=== PATIENT | female | born 1975 | race Caucasian/White ===

== ENCOUNTER 2019-12-18 15:41 | Emergency (ER) | payer MEDICAID ==
[~2019-12-18] VITALS: Ht 160 cm; Wt 61.4 kg
[~2019-12-18 15:41] MED LIST: CEFD300C21 PO; DOCU100C40 PO
[2019-12-18] MEDS ORDERED: acetaminophen 325mg tablet PO ONE (16:05)
[2019-12-18] MEDS ORDERED: ibuprofen tablet 400 MG TABLET PO ONE (16:05)
[2019-12-18] MEDS ORDERED: CefTRIAXone 1000mg IM Kit (w/lidocaine diluent) IM ONE (16:35)
[2019-12-18] MEDS ORDERED: azithromycin 250mg tablet PO ONE (16:35)
[2019-12-18 16:41] LABS: CLARITY,URINE SLIGHTLY CLOUDY (Clear); COLOR,URINE YELLOW (Yellow); GLUCOSE, URINE NEGATIVE (Neg); KETONES,URINE NEGATIVE (Neg); LEUKOCYTE ESTERASE ,URINE NEGATIVE (Neg); NITRITES, URINE NEGATIVE (Neg); OCCULT BLOOD,URINE MODERATE (Neg); PROTEIN,URINE NEGATIVE (Neg)
[2019-12-18 16:49] LABS: UA COLLECTION TYPE CLN CATCH MIDSTREAM
[2019-12-18 16:52] LABS: BACTERIA,URINE FEW /HPF (Neg); SQUAMOUS EPITHELIAL CELL,UR FEW /LPF (FEW); WBC,URINE 0-4 /HPF (0-4)
[2019-12-18 17:40] VITALS: BP 114/60
--- NOTE | 2019-12-18 17:50 | NUR ---
Was in the RAP area with FRANCISCO Tang as he went over the results of the UA with the patient and let her know there was no infection in the urine so there was not a good answer for her fever. He advised her to keep on top of it with tylenol and motrin and then asked the patient if she was ok with this information and she said that she was fine with that information and accepted that
== END 2019-12-18 17:54 | disposition home or self-care (01) ==
LOC: ER 15:41
DX: B34.9 Viral infection, unspecified (principal); R50.9 Fever, unspecified; F17.200 Nicotine dependence, unspecified, uncomplicated; F15.90 Other stimulant use, unspecified, uncomplicated; F11.90 Opioid use, unspecified, uncomplicated; Z60.2 Problems related to living alone; Z79.899 Other long term (current) drug therapy
CPT/HCPCS: 36415; 81001; 87491; 87591; 87635; 96372; 99284; J0696

== ENCOUNTER 2020-10-22 18:04 | Emergency (ER) | payer MEDICAID ==
[~2020-10-22] VITALS: Ht 160 cm; Wt 59.1 kg
[2020-10-22 18:07] VITALS: BP 151/94
[2020-10-22] MEDS ORDERED: CEPH500C2 PO (19:22)
== END 2020-10-22 19:37 | disposition home or self-care (01) ==
LOC: ER 18:04
DX: L03.113 Cellulitis of right upper limb (principal); M25.511 Pain in right shoulder; F15.90 Other stimulant use, unspecified, uncomplicated; F11.90 Opioid use, unspecified, uncomplicated; Z72.89 Other problems related to lifestyle; Z60.2 Problems related to living alone; Z79.2 Long term (current) use of antibiotics; Z79.899 Other long term (current) drug therapy
CPT/HCPCS: 99283

== ENCOUNTER 2021-11-26 21:48 | Emergency (ER) | payer MEDICAID ==
[~2021-11-26] VITALS: Ht 160 cm; Wt 61.5 kg
[2021-11-26 22:12] VITALS: BP 142/91
== END 2021-11-27 04:13 | disposition left against medical advice (07) ==
LOC: ER 21:49
DX: M25.571 Pain in right ankle and joints of right foot (principal); Z53.21 Procedure and treatment not carried out due to patient leaving prior to being seen by health care provider
CPT/HCPCS: 73600

== ENCOUNTER 2023-09-01 06:52 | Emergency (ER) | payer MEDICAID ==
[~2023-09-01] VITALS: Ht 160 cm; Wt 72.0 kg
[2023-09-01 09:40] VITALS: BP 129/77; PULSE 86; RESP 14; O2SAT 99
[2023-09-01 10:26] VITALS: TEMP 97.7
== END 2023-09-01 10:30 | disposition home or self-care (01) ==
LOC: ER 06:53
DX: K92.2 Gastrointestinal hemorrhage, unspecified (principal); F15.90 Other stimulant use, unspecified, uncomplicated; Z79.2 Long term (current) use of antibiotics; Z79.899 Other long term (current) drug therapy; Z90.710 Acquired absence of both cervix and uterus
CPT/HCPCS: 99282

== ENCOUNTER 2024-10-19 10:36 | Inpatient (IN) | payer MEDICAID ==
[~2024-10-19] VITALS: Ht 160 cm; Wt 70.5 kg
[2024-10-19 12:27] LABS: LEUKOCYTE ESTERASE ,URINE NEGATIVE (Neg); NITRITES, URINE NEGATIVE (Neg); OCCULT BLOOD,URINE TRACE-INTACT (Neg)
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
[2024-10-19 12:30] LABS: UA COLLECTION TYPE URINAL
[2024-10-19 12:34] LABS: URINE HCG NEGATIVE (NEG)
[2024-10-19 12:36] LABS: AMORPHOUS PHOSPHATES 2+; MUCUS STRANDS NONE SEEN /LPF (Neg); SQUAMOUS EPITHELIAL CELL,UR FEW /LPF (FEW)
[2024-10-19] MEDS ORDERED: iohexol 300mg/ml 100ml inj. ONE (12:53)
[2024-10-19] MEDS: vancomycin/NS 1 GM ADD-VANTAGE 250 ML IV ONE (12:54)
[2024-10-19 13:09] LABS: MEAN PLATELET VOLUME 8.0 FL (7.4-10.4); RED CELL DISTRIBUTION WIDTH 12.9 % (11.5-14.5)
[2024-10-19 13:15] LABS: CREATININE 0.79 MG/DL (0.40-0.90); TOTAL CARBON DIOXIDE 30.3 MMOL/L (24-32); eCRCL 70 ML/MIN; eGFR 77 ML/MIN
--- NOTE | 2024-10-19 13:30 | ELECTROCARDIOGRAPH REPORT ---
[facility] Test Date: 2024-10-19 Test Time: 13:28:18 Pat Name: FIDEL CARRILLO Department: [facility] Patient ID: [facility]-[id number] Room: [place] [address] Gender: F Bulb Weeder: : 1975 Requested By: MIRELLA CRUM Order Number: [id number] Reading MD: Dr. Noé Mahajan Measurements Intervals [place] Rate: 74 P: 208 FL: 150 QRS: 169 QRSD: 103 T: 171 QT: 389 QTc: 432 Interpretive Statements Ectopic atrial rhythm Right axis deviation Borderline low voltage, extremity leads RSR' in V1 or V2, probably normal variant Abnormal T, consider ischemia, lateral leads Electronically Signed On 10-19-2024 17:54:[address] Noé Mahajan Please click the below link to view image of tracing.
--- NOTE | 2024-10-19 13:35 | RADIOLOGY REPORT ---
INDICATION: possible hardware infection in right ankle. cellulitis vs osteomylitis. COMPARISON: None TECHNIQUE: CT of the right ankle was performed with contrast. Volume transverse images were obtained and reconstructed in multiple planes using bone and soft tissue algorithms. 100 mL of Omni 300 was injected. Radiation Dose Information: CT Dose: CTDI volume is 14.4 mGy. Dose-length product is 521 mGy*cm FINDINGS: Surgical fixation plate is seen in the distal tibia and distal fibula. Scattered fat stranding and e rigoberto is seen adjacent to metallic plates which may reflect cellulitis. Underlying osteomyelitis is di fficult to exclude. No discrete abscess identified. No acute fracture or dislocation IMPRESSION: Surgical fixation plate is seen in the distal tibia and distal fibula. Scattered fat stranding and e rigoberto is seen adjacent to metallic plates which may reflect cellulitis. Underlying osteomyelitis is di fficult to exclude. No discrete abscess identified. All CT scans at this medical facility are performed using dose modulation techniques as appropriate t o a performed exam including the following: Automated exposure control was utilized; adjustment of th e MA and/or KV according to patient size; and use of iterative reconstruction technique.
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
[2024-10-19] MEDS ORDERED: ondansetron/PF 4mg/2ml inj IV PRN (14:35)
[2024-10-19] MEDS ORDERED: magnesium Cl slow-release 64mg tablet PO PRN (14:35)
[2024-10-19] MEDS ORDERED: ondansetron 4mg rapidly disintigrating tab PO PRN (14:35)
[2024-10-19] MEDS ORDERED: magnesium sulf-water 2g/50mL 50 ML IV PRN (14:35)
[2024-10-19] MEDS ORDERED: magnesium hydroxide 30ml (MOM) UD suspension PO PRN (14:35)
[2024-10-19] MEDS ORDERED: potassium Cl 40MEQ/1/2NS 520ml 520 ML IV PRN (14:35)
[2024-10-19] MEDS ORDERED: HYDROmorphone inj. 0.5 MG/0.5 ML DISP.SYRIN IV PRN (14:35)
[2024-10-19] MEDS ORDERED: potassium Cl 20 mEq SR tablet PO PRN ×2 (14:35)
[2024-10-19] MEDS ORDERED: magnesium sulf-water 4G/100mL 100 ML IV PRN (14:35)
[2024-10-19] MEDS ORDERED: HYDROcodone/acetaminophen 5mg/325mg tablet PO PRN (14:35)
[2024-10-19] MEDS ORDERED: mag hydrox/Alum hydrox/simeth 30ml oral suspension PO PRN (14:35)
[2024-10-19] MEDS ORDERED: bisacodyl 10mg suppository rectal RC PRN (14:35)
[2024-10-19] MEDS ORDERED: acetaminophen 650mg rectal suppository RC PRN (14:35)
[2024-10-19] MEDS: morphine 4 MG/ML inj SYRINge IV ONE (15:20)
[2024-10-19 15:28] LABS: APTT 29 SECONDS (22-32); INR 1.0 INR
[2024-10-19 15:36] LABS: PHOSPHORUS 3.6 MG/DL (2.3-4.5); PRO BRAIN NATRIURETIC PEPTIDE 35 PG/ML (0-125)
[2024-10-19 15:40] LABS: ETHANOL < 10 MG/DL (<10)
[2024-10-19 15:43] LABS: URINE AMPHETAMINE SCREEN POSITIVE (Neg); URINE BARBITUATE SCREEN NEGATIVE (Neg); URINE BENZODIAZEPINES SCREEN NEGATIVE (Neg); URINE CANNABINOID SCREEN NEGATIVE (Neg); URINE COCAINE SCREEN NEGATIVE (Neg); URINE METHADONE SCREEN NEGATIVE (Neg); URINE OPIATE SCREEN NEGATIVE (Neg); URINE PHENCYCLIDINE SCREEN NEGATIVE (Neg)
[2024-10-19] MEDS: VANCOMYCIN 750MG IV in NS 250 ML IV ONE (15:43)
[2024-10-19 17:58] VITALS: RESP 16; O2SAT 97
[2024-10-19 18:28] VITALS: BP 134/77; PULSE 87; RESP 18; TEMP 97.6; O2SAT 96
[2024-10-19] MEDS: K and/or MAG REPLACEMENT MC SCH (19:10)
[2024-10-19] MEDS: heparin, porcine 5000 units/ml vial SQ SCH (19:12)
[2024-10-19] MEDS: docusate sod 100mg capsule PO SCH (19:12)
[2024-10-19] MEDS: piperacillin/tazo 4.5gm/100ml 100 ML IV SCH (19:23)
[2024-10-19 22:00] VITALS: BP 109/65; PULSE 84; RESP 16; TEMP 98; O2SAT 94
[2024-10-20] MEDS: vancomycin/NS 1 GM ADD-VANTAGE 250 ML IV SCH (03:16)
[2024-10-20 05:53] LABS: MEAN PLATELET VOLUME 8.3 FL (7.4-10.4); RED CELL DISTRIBUTION WIDTH 13.2 % (11.5-14.5)
[2024-10-20 06:11] LABS: CREATININE 0.60 MG/DL (0.40-0.90); TOTAL CARBON DIOXIDE 27.9 MMOL/L (24-32); eCRCL 93 ML/MIN; eGFR > 90 ML/MIN
[2024-10-20 06:38] VITALS: BP 104/63; PULSE 73; RESP 14; TEMP 98; O2SAT 94
[2024-10-20] MEDS: nicotine 14mg patch - 24hr TD SCH (07:39)
[2024-10-20] MEDS: HYDROcodone/acetaminophen 10/325mg tab PO PRN (07:50)
[2024-10-20] MEDS ORDERED: VANCOMYCIN 1GM 200ML H20 (PEG) 200 ML IV SCH (08:00)
[2024-10-20 09:14] VITALS: RESP 16
[2024-10-20 11:00] VITALS: BP 104/59; PULSE 84; RESP 18; TEMP 98.3; O2SAT 98
[2024-10-20 18:00] VITALS: BP 145/82; PULSE 74; RESP 19; TEMP 98.1; O2SAT 99
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
[2024-10-20 22:00] VITALS: BP 140/81; PULSE 77; RESP 16; TEMP 97.4; O2SAT 100
[2024-10-21] MEDS: VANCOMYCIN LEVEL IV ONE (03:56)
[2024-10-21 04:09] LABS: CREATININE 0.68 MG/DL (0.40-0.90); TOTAL CARBON DIOXIDE 26.5 MMOL/L (24-32); eCRCL 82 ML/MIN; eGFR > 90 ML/MIN
[2024-10-21 04:37] LABS: MEAN PLATELET VOLUME 7.8 FL (7.4-10.4); RED CELL DISTRIBUTION WIDTH 12.9 % (11.5-14.5)
--- NOTE | 2024-10-21 04:56 | RADIOLOGY REPORT ---
[facility] EXAMINATION: MR MRI LOWER EXTREMITY RIGHT TECHNIQUE: MRI of the right ankle was performed. HISTORY: right ankle pain and discharge COMPARISON: CT CT LOWER EXTREMITY W/ IV CONTRAST on DOS: 10/19/24, ANKLE,LIMITED (AP/LAT) on DOS: 11/26 Findings/ IMPRESSION: Limited examination secondary to susceptibility artifact from surgical hardware transfixing the dista l fibula and distal tibia. Mild subcutaneous soft-tissue edema around the ankle joint likely representing cellulitis. No discrete fluid collection or abscess. No bone marrow edema to suggest osteomyelitis.
[2024-10-21 06:00] VITALS: BP 146/81; PULSE 66; RESP 16; TEMP 98; O2SAT 99
[2024-10-21 10:28] VITALS: BP 139/77; PULSE 84; RESP 16; TEMP 97.9; O2SAT 99
[2024-10-21] MEDS ORDERED: VANCOmycin 1250MG/NS 250ml Bag 250 ML IV SCH (16:00)
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
[2024-10-23] MEDS ORDERED: VANCOMYCIN LEVEL IV ONE (03:30)
== END 2024-10-21 11:10 | disposition left against medical advice (07) | DRG 383 ==
LOC: ER 10:36 → ED HOLD 14:42 → SUR 3N 17:32
PROVIDERS: ADMIT Family Medicine; ATTEND Family Medicine
PROC: B42F1ZZ Computerized Tomography (CT Scan) of Right Lower Extremity Arteries using Low Osmolar Contrast (ICD-10-PCS; principal; 2024-10-19)
DX: L03.115 Cellulitis of right lower limb (principal); F11.10 Opioid abuse, uncomplicated; G89.29 Other chronic pain; Z53.29 Procedure and treatment not carried out because of patient's decision for other reasons; R26.9 Unspecified abnormalities of gait and mobility; Z72.0 Tobacco use; Z90.710 Acquired absence of both cervix and uterus
CPT/HCPCS: 36415; 73701; 73721; 80048; 80053; 80202; 80305; 80320; 81001; 81025; 83605; 83735; 83880; 84100; 84145; 85025; 85610; 85651; 85730; 86140; 87040; 87070; 87077; 87081; 87186; 93005; 96365; 96375; 97116; 97161; 99285; A4649; A6196; A6212; A6258; A6449; G0378; J1644; J2270; J2543; J3373; J7050; Q9967